=== PATIENT | male | born 1950 | race Caucasian/White ===

== ENCOUNTER 2017-01-02 03:03 | Inpatient (IN) | payer OTHER, MEDICARE ==
[~2017-01-02] VITALS: Ht 185.4 cm; Wt 75.5 kg
[2017-01-02] MEDS ORDERED: OMNIPAQUE 350 MG/ML, 100ML BOTTLE ONE (06:00)
[2017-01-02] MEDS ORDERED: FUROSEMIDE 40 MG/4 ML ONE (06:04)
[2017-01-02] MEDS ORDERED: ASPIRIN 81 MG TABLET CHEW ONE (06:05)
[2017-01-02] MEDS ORDERED: ALBUTEROL/IPRATROPIUM 2.5MG/0.5MG, 3 ML ONE ×2 (07:44→11:28)
[2017-01-02] MEDS ORDERED: HEPARIN 25,000 UNITS/500ML PMX 500 ML ONE (07:49)
[2017-01-02] MEDS ORDERED: HEPARIN 5,000 UNITS/ML, 1ML ONE ×2 (07:50→15:34)
[2017-01-02] MEDS ORDERED: BACITRACIN ZINC OINT 500U/GM, 0.9 GM ONE (08:47)
[2017-01-02 09:40] LABS: ANTI-Xa-UNFRACTIONATED HEP 0.02 IU/mL (0.30-0.70)
[2017-01-02] MEDS: ALBUTEROL/IPRATROPIUM 2.5MG/0.5MG, 3 ML NPPB SCH ×4 (11:30→22:48)
[2017-01-02 11:46] LABS: BLOOD UREA NITROGEN 40 mg/dL (7-18)
[2017-01-02 11:47] LABS: IS PT STATUS REG ER OR PRE ER? YES
[2017-01-02 13:18] LABS: HEMATOCRIT 39.6 % (39.2-51.8); HEMOGLOBIN 13.2 g/dL (13.7-18.0); WHITE BLOOD COUNT 12.2 x10^3/uL (3.4-10)
[2017-01-02 15:49] VITALS: BP 95/68
[2017-01-02 16:49] LABS: IS PT STATUS REG ER OR PRE ER? NO
[2017-01-02] MEDS ORDERED: HEPARIN 25,000 UNITS/500ML PMX 500 ML IV PRN (17:00)
[2017-01-02] MEDS ORDERED: HEPARIN 5,000 UNITS/ML, 1ML IV ONE (17:00)
[2017-01-02] MEDS ORDERED: FUROSEMIDE 40 MG/4 ML IV SCH (17:00)
[2017-01-02] MEDS ORDERED: HEPARIN 5,000 UNITS/ML, 1ML IV PRN (17:00)
[2017-01-02 17:25] VITALS: BP 95/58
[2017-01-02 20:04] VITALS: BP 101/64
[2017-01-02] MEDS: FAMOTIDINE 20 MG/2 ML IVPush SCH (21:02)
[2017-01-02 22:08] LABS: IS PT STATUS REG ER OR PRE ER? NO
[2017-01-03 00:38] VITALS: BP 96/64
[2017-01-03] MEDS: ALBUTEROL/IPRATROPIUM 2.5MG/0.5MG, 3 ML NPPB SCH ×5 (03:30→20:52)
[2017-01-03] MEDS ORDERED: FUROSEMIDE 40 MG/4 ML IV SCH ×2 (05:00→07:30)
[2017-01-03 05:38] LABS: HEMATOCRIT 37.9 % (39.2-51.8); HEMOGLOBIN 12.6 g/dL (13.7-18.0); WHITE BLOOD COUNT 11.7 x10^3/uL (3.4-10)
[2017-01-03 05:39] LABS: BLOOD UREA NITROGEN 38 mg/dL (7-18)
[2017-01-03 05:50] LABS: ASPARTATE AMINO TRANSFERASE 26 U/L (15-37)
[2017-01-03] MEDS: ASPIRIN 81 MG TABLET EC PO SCH (06:37)
[2017-01-03 07:05] VITALS: BP 92/62
[2017-01-03] MEDS: FAMOTIDINE 20 MG/2 ML IVPush SCH (07:40)
[2017-01-03] MEDS ORDERED: FUROSEMIDE 40 MG TABLET PO SCH (09:00)
[2017-01-03] MEDS ORDERED: POTASSIUM CHLORIDE 20 MEQ TAB.ER.PRT PO ONE (12:00)
[2017-01-03] MEDS ORDERED: FUROSEMIDE 40 MG/4 ML IV ONE (12:00)
[2017-01-03 12:02] VITALS: BP 90/65
[2017-01-03] MEDS ORDERED: LIDOCAINE 2%, 20ML ONE (15:42)
[2017-01-03] MEDS ORDERED: FENTANYL PF 100 MCG/2ML ONE (15:42)
[2017-01-03] MEDS ORDERED: MIDAZOLAM 1 MG/ML, 5ML ONE (15:42)
[2017-01-03] MEDS: HEPARIN 25,000 UNITS/500ML PMX 500 ML IV PRN (23:08)
[2017-01-04] MEDS: ALBUTEROL/IPRATROPIUM 2.5MG/0.5MG, 3 ML NPPB SCH ×4 (01:01→20:19)
[2017-01-04] MEDS: ALBUTEROL/IPRATROPIUM 2.5MG/0.5MG, 3 ML NPPB PRN ×2 (01:12→06:44)
[2017-01-04] MEDS: LORazepam 2 MG/ML, 1ML IVPush PRN ×2 (01:28→13:45)
[2017-01-04 04:37] LABS: BLOOD UREA NITROGEN 42 mg/dL (7-18)
[2017-01-04 04:43] LABS: IS PT STATUS REG ER OR PRE ER? NO
[2017-01-04 07:00] VITALS: BP 110/57
[2017-01-04] MEDS: POTASSIUM CHLORIDE 20 MEQ TAB.ER.PRT PO SCH (09:09)
[2017-01-04] MEDS: ASPIRIN 81 MG TABLET EC PO SCH (09:10)
[2017-01-04] MEDS: FUROSEMIDE 40 MG/4 ML IV SCH (09:11)
[2017-01-04] MEDS: HEPARIN 25,000 UNITS/500ML PMX 500 ML IV PRN (13:52)
[2017-01-04] MEDS ORDERED: POTASSIUM CHLORIDE 20 MEQ TAB.ER.PRT PO ONE (15:00)
[2017-01-04] MEDS ORDERED: FUROSEMIDE 40 MG/4 ML IV ONE (15:00)
[2017-01-04] MEDS: HEPARIN 5,000 UNITS/ML, 1ML SQ SCH ×2 (15:55→22:50)
[2017-01-04] MEDS: METOPROLOL TARTRATE 25 MG TABLET PO SCH (18:09)
[2017-01-05] MEDS: LORazepam 1MG TABLET PO PRN (03:13)
[2017-01-05] MEDS: ALBUTEROL/IPRATROPIUM 2.5MG/0.5MG, 3 ML NPPB SCH ×2 (04:54→11:00)
[2017-01-05 04:56] LABS: HEMOGLOBIN 13.1 g/dL (13.7-18.0); WHITE BLOOD COUNT 14.2 x10^3/uL (3.4-10)
[2017-01-05 05:00] VITALS: BP 94/69
[2017-01-05 05:15] LABS: ASPARTATE AMINO TRANSFERASE 65 U/L (15-37); BLOOD UREA NITROGEN 49 mg/dL (7-18)
[2017-01-05] MEDS: LORazepam 2 MG/ML, 1ML IVPush PRN (06:04)
[2017-01-05] MEDS: HEPARIN 5,000 UNITS/ML, 1ML SQ SCH ×3 (06:09→22:03)
[2017-01-05] MEDS: METOPROLOL TARTRATE 25 MG TABLET PO SCH ×2 (06:43→18:00)
[2017-01-05] MEDS: ASPIRIN 81 MG TABLET EC PO SCH (06:44)
[2017-01-05] MEDS: POTASSIUM CHLORIDE 20 MEQ TAB.ER.PRT PO SCH (08:40)
[2017-01-05] MEDS: FUROSEMIDE 40 MG/4 ML IV SCH (08:41)
[2017-01-05] MEDS: NICOTINE 14MG/24 HR PATCH.TD24 TD SCH (09:00)
[2017-01-05] MEDS ORDERED: MORPHINE SULFATE 4 MG/ML, 1ML ONE (09:10)
[2017-01-05] MEDS ORDERED: MIDAZOLAM 1 MG/ML, 5ML ONE (09:10)
[2017-01-05] MEDS ORDERED: MIDAZOLAM 1 MG/ML, 5ML IVPush ONE (09:30)
[2017-01-05] MEDS ORDERED: MORPHINE SULFATE 4 MG/ML, 1ML IVPush ONE (09:30)
[2017-01-05] MEDS ORDERED: PHARMACY MAY ADJ FOR RENAL FX MC SCH (09:30)
[2017-01-05] MEDS ORDERED: LIDOCAINE-MPF 1%, 2ML ENDO PRN (09:30)
[2017-01-05] MEDS ORDERED: VECURONIUM 10 MG ONE (09:43)
[2017-01-05] MEDS ORDERED: MORPHINE SULFATE 4 MG/ML, 1ML IVPush PRN (10:00)
[2017-01-05 10:09] LABS: ABG COLLECTION SITE RIGHT RADIAL; COLLATERAL CIRCULATION TESTING NORMAL
[2017-01-05] MEDS ORDERED: CHLORHEXIDINE MOUTHWASH 15 ML UDC MM PRN (11:00)
[2017-01-05 11:17] LABS: HEMATOCRIT 43.4 % (39.2-51.8); HEMOGLOBIN 14.3 g/dL (13.7-18.0); WHITE BLOOD COUNT 20.5 x10^3/uL (3.4-10)
[2017-01-05] MEDS: PROPOFOL 100 ML IV PRN (11:24)
[2017-01-05 11:29] LABS: ASPARTATE AMINO TRANSFERASE 65 U/L (15-37); BLOOD UREA NITROGEN 56 mg/dL (7-18)
[2017-01-05 11:38] LABS: DIFF TOTAL CELLS COUNTED 100 CELL DIFF
[2017-01-05 11:41] LABS: VERIFY COUNTS? YES
[2017-01-05] MEDS ORDERED: METOPROLOL TARTRATE 25 MG TABLET PO ONE (12:00)
[2017-01-05 12:04] LABS: ABG COLLECTION SITE RIGHT RADIAL; COLLATERAL CIRCULATION TESTING NORMAL
[2017-01-05] MEDS ORDERED: FENTANYL PF 2,500 MCG in SODIUM CHLORIDE 0.9% 200 ML IV PRN (13:30)
[2017-01-05] MEDS ORDERED: MIDAZOLAM HCL 25 MG in SODIUM CHLORIDE 0.9% 245 ML IV PRN (14:00)
[2017-01-05] MEDS: ALBUTEROL/IPRATROPIUM 2.5MG/0.5MG, 3 ML INLINE SCH ×3 (14:24→21:18)
[2017-01-05] MEDS: FAMOTIDINE 20 MG TABLET PO SCH (16:19)
[2017-01-05] MEDS: SODIUM ACETATE 150 MEQ in DEXTROSE 5% 1,000 ML IV SCH ×2 (16:20→21:57)
[2017-01-05] MEDS: NOREPINEPHRINE 4 MG in SODIUM CHLORIDE 0.9% 246 ML IV PRN (17:01)
[2017-01-05] MEDS: SODIUM CHLORIDE FLUSH 10ML SYR IVF SCH (21:57)
[2017-01-05] MEDS: ATORVASTATIN 40 MG TABLET PO SCH (22:20)
[2017-01-06] MEDS: PROPOFOL 100 ML IV PRN ×2 (00:16→03:28)
[2017-01-06] MEDS: NOREPINEPHRINE 4 MG in SODIUM CHLORIDE 0.9% 246 ML IV PRN ×2 (00:17→06:52)
[2017-01-06] MEDS: ALBUTEROL/IPRATROPIUM 2.5MG/0.5MG, 3 ML INLINE SCH ×6 (02:00→22:40)
[2017-01-06 04:30] LABS: ABG COLLECTION SITE RIGHT RADIAL; COLLATERAL CIRCULATION TESTING NORMAL
[2017-01-06 05:10] VITALS: BP 100/70
[2017-01-06 05:41] LABS: HEMATOCRIT 34.7 % (39.2-51.8); HEMOGLOBIN 11.5 g/dL (13.7-18.0); WHITE BLOOD COUNT 14.2 x10^3/uL (3.4-10)
[2017-01-06] MEDS: METOPROLOL TARTRATE 25 MG TABLET PO SCH (05:44)
[2017-01-06 05:51] LABS: BLOOD UREA NITROGEN 55 mg/dL (7-18)
[2017-01-06 05:54] LABS: ASPARTATE AMINO TRANSFERASE 53 U/L (15-37)
[2017-01-06] MEDS ORDERED: ASPIRIN 81 MG TABLET EC PO SCH (06:00)
[2017-01-06] MEDS: INSULIN ASPART 100 UNITS/ML, PEN SQ-INSULIN SCH ×2 (06:07→11:45)
[2017-01-06] MEDS: HEPARIN 5,000 UNITS/ML, 1ML SQ SCH (06:40)
[2017-01-06] MEDS ORDERED: CEFUROXIME 1.5 GM in SODIUM CHLORIDE 0.9% 50 ML IVPB PRN ×2 (07:30→10:30)
[2017-01-06] MEDS ORDERED: DEXMEDETOMIDINE 200 MCG in SODIUM CHLORIDE 0.9% 48 ML IV SCH ×2 (07:30→10:30)
[2017-01-06] MEDS ORDERED: VANCOMYCIN 1,300 MG in SODIUM CHLORIDE 0.9% 250 ML IVPB PRN (07:30)
[2017-01-06] MEDS ORDERED: FUROSEMIDE 40 MG/4 ML IV SCH (09:00)
[2017-01-06] MEDS ORDERED: FENTANYL PF 1000 MCG/20ML ONE (09:03)
[2017-01-06] MEDS ORDERED: MIDAZOLAM 10MG/2 ML ONE (09:03)
[2017-01-06] MEDS: NICOTINE 14MG/24 HR PATCH.TD24 TD SCH (09:20)
[2017-01-06] MEDS: FAMOTIDINE 20 MG TABLET PO SCH (09:27)
[2017-01-06] MEDS: POTASSIUM CHLORIDE 20 MEQ TAB.ER.PRT PO SCH (09:27)
[2017-01-06] MEDS: SODIUM CHLORIDE FLUSH 10ML SYR IVF SCH ×3 (09:28→20:22)
[2017-01-06] MEDS ORDERED: ALBUMIN HUMAN 5% 500 ML IV ONE (10:30)
[2017-01-06] MEDS ORDERED: EPINEPHRINE 2 MG in SODIUM CHLORIDE 0.9% 248 ML IV SCH (10:30)
[2017-01-06] MEDS ORDERED: PHENYLEPHRINE 10 MG in SODIUM CHLORIDE 0.9% 249 ML IV PRN ×2 (10:30→15:34)
[2017-01-06] MEDS ORDERED: VANCOMYCIN 1,300 MG in SODIUM CHLORIDE 0.9% 250 ML IV PRN (10:30)
[2017-01-06] MEDS ORDERED: MANNITOL PMX 20% 500 ML IVPB PRN (10:30)
[2017-01-06] MEDS ORDERED: REGULAR INSULIN 62.5 UNITS in SODIUM CHLORIDE 0.9% 249.375 ML IV PRN ×2 (10:30→15:34)
[2017-01-06] MEDS ORDERED: POTASSIUM CHLORIDE 80 MEQ, SODIUM BICARBONATE 8.4% 10 MEQ, MAGNESIUM SULFATE 0.5 GM, LI... IV PRN (10:30)
[2017-01-06] MEDS ORDERED: ROCURONIUM 10 MG/ML ONE (12:26)
[2017-01-06] MEDS ORDERED: PAPAVERINE 30 MG/ML, 2ML IVPush ONE (13:17)
[2017-01-06] MEDS ORDERED: CALCIUM CHLORIDE 10%, 10ML SYR ONE (14:42)
[2017-01-06] MEDS ORDERED: AMINOCAPROIC ACID 250 MG/ML, 20ML ONE (14:42)
[2017-01-06] MEDS ORDERED: PROTAMINE SULFATE 10 MG/ML, 25ML ONE (14:42)
[2017-01-06] MEDS ORDERED: PAPAVERINE 30 MG/ML, 2ML ONE (14:46)
[2017-01-06] MEDS ORDERED: SODIUM CHLORIDE 0.9% 1,000 ML IV PRN (15:34)
[2017-01-06] MEDS ORDERED: ESMOLOL/NS PMX 250 ML IV PRN (15:34)
[2017-01-06] MEDS ORDERED: NITROGLYCERIN/D5W PMX 250 ML IV PRN (15:34)
[2017-01-06] MEDS ORDERED: DEXMEDETOMIDINE 200 MCG in SODIUM CHLORIDE 0.9% 48 ML IV PRN (15:34)
[2017-01-06] MEDS ORDERED: DOBUTAMINE 250 MG in SODIUM CHLORIDE 0.9% 230 ML IV PRN (15:34)
[2017-01-06] MEDS ORDERED: GLUCAGON 1 MG IM PRN (16:00)
[2017-01-06] MEDS ORDERED: PROCHLORPERAZINE 5 MG/ML, 2ML IVPush PRN (16:00)
[2017-01-06] MEDS ORDERED: BISACODYL 5 MG EC TABLET PO PRN (16:00)
[2017-01-06] MEDS ORDERED: BISACODYL 10 MG SUPP PR PRN (16:00)
[2017-01-06] MEDS ORDERED: LACTATED RINGERS 500 ML IV PRN (16:00)
[2017-01-06] MEDS ORDERED: SODIUM BICARB 8.4%, 50ML SYRINGE IV PRN (16:00)
[2017-01-06] MEDS ORDERED: ONDANSETRON 2MG/ML, 2ML IVPush PRN (16:00)
[2017-01-06] MEDS ORDERED: HYDROcodone/APAP 10/325 MG TABLET PO PRN (16:00)
[2017-01-06] MEDS ORDERED: INSULIN ASPART 100 UNITS/ML, PEN SQ-INSULIN PRN (16:00)
[2017-01-06] MEDS ORDERED: DEXTROSE 50%, 50ML SYRINGE IVPush PRN (16:00)
[2017-01-06] MEDS ORDERED: DEXTROSE 4 GM TAB.CHEW PO PRN (16:00)
[2017-01-06] MEDS ORDERED: MEPERIDINE/PF 25MG/0.5ML IVPush PRN (16:00)
[2017-01-06] MEDS ORDERED: ACETAMINOPHEN 325 MG TABLET PO PRN (16:00)
[2017-01-06] MEDS ORDERED: THROMBIN 5,000 UNIT VIAL TP ONE ×2 (16:55→16:57)
[2017-01-06] MEDS ORDERED: HEPARIN 1,000 UNITS/ML, 30ML ONE ×3 (17:53→17:54)
[2017-01-06 18:11] LABS: ABG COLLECTION SITE ARTERIAL LINE
[2017-01-06 18:15] LABS: HEMATOCRIT 32.7 % (39.2-51.8); HEMOGLOBIN 10.9 g/dL (13.7-18.0)
[2017-01-06] MEDS: MAGNESIUM SULFATE 1 GM in SODIUM CHLORIDE 0.9% 50 ML IVPB SCH (18:24)
[2017-01-06] MEDS: KSCALE TO 4.5 IV SCH ×2 (18:29→22:00)
[2017-01-06] MEDS: morphine SULFATE 10 MG/ML, 1ML IVPush PRN ×2 (19:01→20:28)
[2017-01-06] MEDS: ATORVASTATIN 40 MG TABLET PO SCH (20:21)
[2017-01-06] MEDS: LORazepam 1MG TABLET PO PRN (20:22)
[2017-01-06] MEDS: OXYcodone IR 5MG TABLET PO PRN (20:22)
[2017-01-06] MEDS: MIDAZOLAM 1 MG/ML, 5ML IVPush PRN (20:28)
[2017-01-06] MEDS: DOCUSATE 100 MG CAPSULE PO SCH (21:00)
[2017-01-06 22:28] LABS: HEMOGLOBIN 11.5 g/dL (13.7-18.0)
[2017-01-06] MEDS: EPINEPHRINE 2 MG in SODIUM CHLORIDE 0.9% 248 ML IV PRN (22:48)
[2017-01-06] MEDS: MUPIROCIN OINT 2%, 22GM NAS SCH (22:49)
[2017-01-06] MEDS: CEFUROXIME 1.5 GM in SODIUM CHLORIDE 0.9% 50 ML IVPB SCH (22:49)
[2017-01-07 00:14] LABS: ABG COLLECTION SITE ARTERIAL LINE
[2017-01-07] MEDS: VANCOMYCIN 1,200 MG in SODIUM CHLORIDE 0.9% 250 ML IVPB SCH ×2 (00:14→13:55)
[2017-01-07] MEDS: ALBUTEROL/IPRATROPIUM 2.5MG/0.5MG, 3 ML INLINE SCH ×6 (02:40→21:40)
[2017-01-07] MEDS: MIDAZOLAM 1 MG/ML, 5ML IVPush PRN ×2 (03:05→16:05)
[2017-01-07] MEDS: morphine SULFATE 10 MG/ML, 1ML IVPush PRN (03:06)
[2017-01-07] MEDS: PROPOFOL 100 ML IV PRN ×2 (03:06→17:27)
[2017-01-07] MEDS: KSCALE TO 4.5 IV SCH ×2 (04:00→10:54)
[2017-01-07 04:16] LABS: ABG COLLECTION SITE ARTERIAL LINE
[2017-01-07 04:22] LABS: HEMATOCRIT 35.2 % (39.2-51.8); HEMOGLOBIN 11.6 g/dL (13.7-18.0); WHITE BLOOD COUNT 22.9 x10^3/uL (3.4-10)
[2017-01-07 04:30] LABS: BLOOD UREA NITROGEN 43 mg/dL (7-18)
[2017-01-07 04:58] VITALS: BP 112/64
[2017-01-07] MEDS: EPINEPHRINE 2 MG in SODIUM CHLORIDE 0.9% 248 ML IV PRN ×3 (05:10→18:45)
[2017-01-07] MEDS ORDERED: FUROSEMIDE 20 MG/2 ML IV ONE (07:30)
[2017-01-07] MEDS: MUPIROCIN OINT 2%, 22GM NAS SCH ×2 (09:00→20:27)
[2017-01-07] MEDS: FAMOTIDINE 20 MG TABLET PO SCH ×2 (09:00→20:27)
[2017-01-07] MEDS: DOCUSATE 100 MG CAPSULE PO SCH (09:00)
[2017-01-07] MEDS: METOPROLOL TARTRATE 25 MG TABLET PO/NG SCH ×2 (09:00→20:28)
[2017-01-07] MEDS: SODIUM CHLORIDE FLUSH 10ML SYR IVF SCH ×4 (09:00→20:27)
[2017-01-07] MEDS: ASPIRIN 81 MG TABLET EC PO SCH (09:00)
[2017-01-07] MEDS ORDERED: PANTOPRAZOLE 40 MG IV IVPush SCH (09:00)
[2017-01-07 10:05] LABS: HEMATOCRIT 33.7 % (39.2-51.8); HEMOGLOBIN 11.1 g/dL (13.7-18.0)
[2017-01-07] MEDS: CEFUROXIME 1.5 GM in SODIUM CHLORIDE 0.9% 50 ML IVPB SCH (12:40)
[2017-01-07] MEDS: OXYcodone IR 5MG TABLET PO PRN ×2 (12:40→20:28)
[2017-01-07] MEDS: MAGNESIUM SULFATE 1 GM in SODIUM CHLORIDE 0.9% 50 ML IVPB SCH (16:03)
[2017-01-07] MEDS: CHLORHEXIDINE MOUTHWASH 15 ML UDC MM SCH (16:05)
[2017-01-07] MEDS: CEFTRIAXONE PMX 1GM/50ML 50 ML IV SCH (17:31)
[2017-01-07] MEDS: ATORVASTATIN 40 MG TABLET PO SCH (20:27)
[2017-01-07] MEDS: DOCUSATE 50 MG/5 ML, 10ML UDC PO SCH (21:59)
[2017-01-08] MEDS: PROPOFOL 100 ML IV PRN ×3 (00:09→18:21)
[2017-01-08] MEDS: OXYcodone IR 5MG TABLET PO PRN ×2 (00:17→11:02)
[2017-01-08] MEDS: ALBUTEROL/IPRATROPIUM 2.5MG/0.5MG, 3 ML INLINE SCH ×6 (02:10→23:00)
[2017-01-08 03:57] LABS: ABG COLLECTION SITE LEFT RADIAL
[2017-01-08 03:58] LABS: COLLATERAL CIRCULATION TESTING NOT DOCUMENTED
[2017-01-08 04:09] LABS: BLOOD UREA NITROGEN 33 mg/dL (7-18)
[2017-01-08 04:11] LABS: HEMATOCRIT 32.2 % (39.2-51.8); HEMOGLOBIN 10.4 g/dL (13.7-18.0); WHITE BLOOD COUNT 15.1 x10^3/uL (3.4-10)
[2017-01-08] MEDS: CHLORHEXIDINE MOUTHWASH 15 ML UDC MM SCH ×2 (04:46→15:41)
[2017-01-08] MEDS: EPINEPHRINE 2 MG in SODIUM CHLORIDE 0.9% 248 ML IV PRN (04:50)
[2017-01-08 05:00] VITALS: BP 98/48
[2017-01-08] MEDS: ENOXAPARIN 40 MG/0.4 ML SQ SCH (09:00)
[2017-01-08] MEDS ORDERED: OXYcodone 5 MG/5 ML ORAL.SOL UDC ONE (10:48)
[2017-01-08] MEDS: INSULIN DETEMIR 100 UNITS/ML, PEN SQ-INSULIN SCH ×2 (10:58→21:46)
[2017-01-08] MEDS: METOPROLOL TARTRATE 25 MG TABLET PO/NG SCH ×2 (10:59→21:45)
[2017-01-08] MEDS: ASPIRIN 81 MG TABLET EC PO SCH (10:59)
[2017-01-08] MEDS: INSULIN ASPART 100 UNITS/ML, PEN SQ-INSULIN SCH ×3 (10:59→23:00)
[2017-01-08] MEDS: DOCUSATE 50 MG/5 ML, 10ML UDC PO SCH ×2 (10:59→21:45)
[2017-01-08] MEDS: SODIUM CHLORIDE FLUSH 10ML SYR IVF SCH ×4 (11:00→21:44)
[2017-01-08] MEDS: MUPIROCIN OINT 2%, 22GM NAS SCH ×2 (11:00→21:45)
[2017-01-08] MEDS: FAMOTIDINE 20 MG TABLET PO SCH ×2 (15:39→21:48)
[2017-01-08] MEDS: CEFTRIAXONE PMX 1GM/50ML 50 ML IV SCH (15:40)
[2017-01-08] MEDS: ASPIRIN 81 MG TABLET CHEW PO SCH (15:40)
[2017-01-08] MEDS: MAGNESIUM SULFATE 1 GM in SODIUM CHLORIDE 0.9% 50 ML IVPB SCH (16:17)
[2017-01-08] MEDS: ATORVASTATIN 40 MG TABLET PO SCH (21:45)
[2017-01-08] MEDS: OXYcodone 5 MG/5 ML ORAL.SOL UDC PO PRN (23:51)
[2017-01-09] MEDS: PROPOFOL 100 ML IV PRN ×4 (01:26→19:25)
[2017-01-09] MEDS: ALBUTEROL/IPRATROPIUM 2.5MG/0.5MG, 3 ML INLINE SCH ×6 (03:00→23:00)
[2017-01-09] MEDS: CHLORHEXIDINE MOUTHWASH 15 ML UDC MM SCH (04:00)
[2017-01-09 04:32] LABS: HEMOGLOBIN 10.1 g/dL (13.7-18.0); WHITE BLOOD COUNT 12.6 x10^3/uL (3.4-10)
[2017-01-09 04:39] LABS: ABG COLLECTION SITE RIGHT RADIAL; COLLATERAL CIRCULATION TESTING NORMAL
[2017-01-09 04:48] LABS: BLOOD UREA NITROGEN 26 mg/dL (7-18)
[2017-01-09] MEDS: INSULIN ASPART 100 UNITS/ML, PEN SQ-INSULIN SCH ×4 (05:00→22:58)
[2017-01-09 05:51] VITALS: BP 99/62
[2017-01-09] MEDS: OXYcodone 5 MG/5 ML ORAL.SOL UDC PO PRN ×3 (06:17→20:39)
[2017-01-09] MEDS: POTASSIUM CHLORIDE 10 MEQ TABLET.ER PO SCH ×2 (08:36→16:48)
[2017-01-09] MEDS: ASPIRIN 81 MG TABLET CHEW PO SCH (08:36)
[2017-01-09] MEDS: FAMOTIDINE 20 MG TABLET PO SCH ×2 (08:37→20:39)
[2017-01-09] MEDS: MUPIROCIN OINT 2%, 22GM NAS SCH ×2 (08:37→20:39)
[2017-01-09] MEDS: SODIUM CHLORIDE FLUSH 10ML SYR IVF SCH ×3 (08:37→20:38)
[2017-01-09] MEDS: FUROSEMIDE 20 MG/2 ML IV SCH ×2 (08:37→16:48)
[2017-01-09] MEDS: DOCUSATE 50 MG/5 ML, 10ML UDC PO SCH ×2 (08:37→20:39)
[2017-01-09] MEDS: METOPROLOL TARTRATE 25 MG TABLET PO/NG SCH ×2 (08:38→20:39)
[2017-01-09] MEDS: ENOXAPARIN 40 MG/0.4 ML SQ SCH (08:38)
[2017-01-09] MEDS ORDERED: CLOPIDOGREL 75 MG TABLET PO SCH (09:00)
[2017-01-09] MEDS: INSULIN DETEMIR 100 UNITS/ML, PEN SQ-INSULIN SCH ×2 (11:31→22:58)
[2017-01-09] MEDS: CEFTRIAXONE PMX 1GM/50ML 50 ML IV SCH (16:48)
[2017-01-09] MEDS ORDERED: WARFARIN 5 MG TABLET PO-COUM ONE (18:33)
[2017-01-09] MEDS: ATORVASTATIN 40 MG TABLET PO SCH (20:39)
[2017-01-10] MEDS: OXYcodone 5 MG/5 ML ORAL.SOL UDC PO PRN ×4 (01:25→20:28)
[2017-01-10] MEDS: PROPOFOL 100 ML IV PRN ×4 (01:25→21:22)
[2017-01-10] MEDS: ALBUTEROL/IPRATROPIUM 2.5MG/0.5MG, 3 ML INLINE SCH ×6 (03:00→23:00)
[2017-01-10 04:22] VITALS: BP 100/56
[2017-01-10 04:24] LABS: ABG COLLECTION SITE RIGHT RADIAL; COLLATERAL CIRCULATION TESTING NORMAL
[2017-01-10] MEDS: INSULIN ASPART 100 UNITS/ML, PEN SQ-INSULIN SCH ×4 (05:00→23:50)
[2017-01-10 05:24] LABS: HEMATOCRIT 31.8 % (39.2-51.8); HEMOGLOBIN 10.6 g/dL (13.7-18.0); WHITE BLOOD COUNT 13.9 x10^3/uL (3.4-10)
[2017-01-10 05:36] LABS: BLOOD UREA NITROGEN 27 mg/dL (7-18)
[2017-01-10] MEDS ORDERED: DEXMEDETOMIDINE 200 MCG in SODIUM CHLORIDE 0.9% 48 ML IV PRN (08:30)
[2017-01-10] MEDS ORDERED: LABETALOL 5MG/ML, 20ML IVPush PRN (08:30)
[2017-01-10] MEDS: MUPIROCIN OINT 2%, 22GM NAS SCH ×2 (08:58→20:28)
[2017-01-10] MEDS: LISINOPRIL 5 MG TABLET PO SCH ×2 (08:58→20:28)
[2017-01-10] MEDS: ENOXAPARIN 40 MG/0.4 ML SQ SCH (08:58)
[2017-01-10] MEDS: DOCUSATE 50 MG/5 ML, 10ML UDC PO SCH ×2 (08:59→20:29)
[2017-01-10] MEDS: FUROSEMIDE 40 MG/4 ML IV SCH ×2 (10:13→17:17)
[2017-01-10] MEDS: FAMOTIDINE 20 MG TABLET PO SCH ×2 (10:13→20:28)
[2017-01-10] MEDS: SODIUM CHLORIDE FLUSH 10ML SYR IVF SCH ×2 (10:13→14:34)
[2017-01-10] MEDS: ASPIRIN 81 MG TABLET CHEW PO SCH (10:13)
[2017-01-10] MEDS: METOPROLOL TARTRATE 25 MG TABLET PO/NG SCH ×2 (10:14→20:28)
[2017-01-10] MEDS: INSULIN DETEMIR 100 UNITS/ML, PEN SQ-INSULIN SCH ×2 (11:48→23:50)
[2017-01-10] MEDS: ACETAMINOPHEN 650 MG SUPP PR PRN ×2 (14:42→23:53)
[2017-01-10] MEDS: CEFTRIAXONE PMX 1GM/50ML 50 ML IV SCH (16:30)
[2017-01-10] MEDS ORDERED: FUROSEMIDE 40 MG/4 ML IV SCH (17:00)
[2017-01-10] MEDS ORDERED: POTASSIUM CHLORIDE 20 MEQ PACKET PO SCH (17:00)
[2017-01-10] MEDS ORDERED: WARFARIN 5 MG TABLET PO-COUM SCH (18:00)
[2017-01-10] MEDS: ATORVASTATIN 40 MG TABLET PO SCH (20:28)
[2017-01-11] MEDS: ALBUTEROL/IPRATROPIUM 2.5MG/0.5MG, 3 ML INLINE SCH ×6 (02:24→22:18)
[2017-01-11] MEDS: OXYcodone 5 MG/5 ML ORAL.SOL UDC PO PRN ×3 (04:13→18:47)
[2017-01-11] MEDS: PROPOFOL 100 ML IV PRN ×3 (04:25→20:04)
[2017-01-11 04:37] LABS: HEMATOCRIT 35.6 % (39.2-51.8); HEMOGLOBIN 11.8 g/dL (13.7-18.0); WHITE BLOOD COUNT 12.9 x10^3/uL (3.4-10)
[2017-01-11 04:47] LABS: BLOOD UREA NITROGEN 32 mg/dL (7-18)
[2017-01-11 04:55] LABS: ABG COLLECTION SITE RIGHT RADIAL; COLLATERAL CIRCULATION TESTING NORMAL
[2017-01-11 05:31] VITALS: BP 103/54
[2017-01-11] MEDS: INSULIN ASPART 100 UNITS/ML, PEN SQ-INSULIN SCH ×4 (06:31→22:37)
[2017-01-11] MEDS ORDERED: PHARMACOKINETIC MONITORING MC PRN (09:00)
[2017-01-11] MEDS: METOPROLOL TARTRATE 25 MG TABLET PO/NG SCH ×2 (09:00→21:00)
[2017-01-11] MEDS ORDERED: VANCOMYCIN PER PHARMACY MC PRN (09:00)
[2017-01-11] MEDS ORDERED: PHARMACOKINETIC CONSULTATION MC ONE (09:00)
[2017-01-11] MEDS: ENOXAPARIN 40 MG/0.4 ML SQ SCH (09:23)
[2017-01-11] MEDS: FAMOTIDINE 20 MG TABLET PO SCH ×2 (09:23→20:59)
[2017-01-11] MEDS: ASPIRIN 81 MG TABLET CHEW PO SCH (09:23)
[2017-01-11] MEDS: FUROSEMIDE 40 MG/4 ML IV SCH ×2 (09:23→14:41)
[2017-01-11] MEDS: MUPIROCIN OINT 2%, 22GM NAS SCH (09:24)
[2017-01-11] MEDS: DOCUSATE 50 MG/5 ML, 10ML UDC PO SCH ×2 (09:24→20:59)
[2017-01-11] MEDS: SODIUM CHLORIDE FLUSH 10ML SYR IVF SCH ×2 (09:24→21:00)
[2017-01-11] MEDS: INSULIN DETEMIR 100 UNITS/ML, PEN SQ-INSULIN SCH ×2 (11:50→22:37)
[2017-01-11] MEDS: PIPERACILLIN/TAZO/PMX 3.375GM 50 ML IV SCH ×3 (11:51→23:58)
[2017-01-11] MEDS: VANCOMYCIN 1,600 MG in SODIUM CHLORIDE 0.9% 250 ML IV SCH (12:21)
[2017-01-11] MEDS ORDERED: SODIUM CHLORIDE 0.9%, 500ML IVBOLUS ONE ×2 (14:30→15:30)
[2017-01-11] MEDS ORDERED: WARFARIN 5 MG TABLET PO-COUM SCH (18:00)
[2017-01-11] MEDS: POTASSIUM CHLORIDE 20 MEQ PACKET PO SCH (18:42)
[2017-01-11] MEDS: ATORVASTATIN 40 MG TABLET PO SCH (20:59)
[2017-01-12] MEDS: ACETAMINOPHEN 650 MG/20.3 ML UDC NG PRN ×3 (01:29→23:15)
[2017-01-12] MEDS: PROPOFOL 100 ML IV PRN (02:00)
[2017-01-12] MEDS: ALBUTEROL/IPRATROPIUM 2.5MG/0.5MG, 3 ML INLINE SCH ×6 (02:18→22:10)
[2017-01-12 04:17] LABS: ABG COLLECTION SITE RIGHT RADIAL; COLLATERAL CIRCULATION TESTING NORMAL
[2017-01-12 04:47] LABS: HEMATOCRIT 31.4 % (39.2-51.8); HEMOGLOBIN 10.4 g/dL (13.7-18.0); WHITE BLOOD COUNT 12.1 x10^3/uL (3.4-10)
[2017-01-12 04:57] LABS: BLOOD UREA NITROGEN 32 mg/dL (7-18)
[2017-01-12 05:00] VITALS: BP 112/67
[2017-01-12] MEDS: INSULIN ASPART 100 UNITS/ML, PEN SQ-INSULIN SCH ×4 (05:01→23:05)
[2017-01-12] MEDS: PIPERACILLIN/TAZO/PMX 3.375GM 50 ML IV SCH ×2 (05:50→13:52)
[2017-01-12] MEDS: VANCOMYCIN 1,600 MG in SODIUM CHLORIDE 0.9% 250 ML IV SCH (06:15)
[2017-01-12] MEDS: ENOXAPARIN 40 MG/0.4 ML SQ SCH (08:47)
[2017-01-12] MEDS: METOPROLOL TARTRATE 25 MG TABLET PO/NG SCH ×2 (08:47→21:40)
[2017-01-12] MEDS: ASPIRIN 81 MG TABLET CHEW PO SCH (08:47)
[2017-01-12] MEDS: POTASSIUM CHLORIDE 20 MEQ PACKET PO SCH ×2 (08:47→17:30)
[2017-01-12] MEDS: FAMOTIDINE 20 MG TABLET PO SCH ×2 (08:47→21:39)
[2017-01-12] MEDS: DOCUSATE 50 MG/5 ML, 10ML UDC PO SCH ×2 (08:48→21:00)
[2017-01-12] MEDS: SODIUM CHLORIDE FLUSH 10ML SYR IVF SCH ×2 (08:53→21:39)
[2017-01-12] MEDS: morphine SULFATE 10 MG/ML, 1ML IVPush PRN (09:16)
[2017-01-12] MEDS: OXYcodone 5 MG/5 ML ORAL.SOL UDC PO PRN ×2 (11:06→15:30)
[2017-01-12] MEDS: INSULIN DETEMIR 100 UNITS/ML, PEN SQ-INSULIN SCH ×2 (11:12→23:05)
[2017-01-12] MEDS: MEROPENEM 1 GM in SODIUM CHLORIDE 0.9% 100 ML IV SCH (17:30)
[2017-01-12] MEDS ORDERED: WARFARIN 10 MG TABLET PO-COUM ONE (18:00)
[2017-01-12] MEDS: MIDAZOLAM 1 MG/ML, 5ML IVPush PRN (20:21)
[2017-01-12] MEDS: ATORVASTATIN 40 MG TABLET PO SCH (21:39)
[2017-01-13] MEDS: VANCOMYCIN 1,600 MG in SODIUM CHLORIDE 0.9% 250 ML IV SCH (00:10)
[2017-01-13] MEDS: MEROPENEM 1 GM in SODIUM CHLORIDE 0.9% 100 ML IV SCH ×2 (01:22→09:13)
[2017-01-13] MEDS: ALBUTEROL/IPRATROPIUM 2.5MG/0.5MG, 3 ML INLINE SCH ×3 (02:16→10:40)
[2017-01-13 04:22] LABS: ABG COLLECTION SITE LEFT RADIAL; COLLATERAL CIRCULATION TESTING NORMAL
[2017-01-13 05:00] VITALS: BP 126/68
[2017-01-13] MEDS: INSULIN ASPART 100 UNITS/ML, PEN SQ-INSULIN SCH ×4 (05:10→22:34)
[2017-01-13 05:25] LABS: HEMATOCRIT 31.1 % (39.2-51.8); HEMOGLOBIN 10.4 g/dL (13.7-18.0); WHITE BLOOD COUNT 12.1 x10^3/uL (3.4-10)
[2017-01-13 05:43] LABS: BLOOD UREA NITROGEN 32 mg/dL (7-18)
[2017-01-13] MEDS: METOPROLOL TARTRATE 25 MG TABLET PO/NG SCH ×2 (08:36→21:13)
[2017-01-13] MEDS: ASPIRIN 81 MG TABLET CHEW PO SCH (08:36)
[2017-01-13] MEDS: FAMOTIDINE 20 MG TABLET PO SCH ×2 (08:36→21:13)
[2017-01-13] MEDS: ENOXAPARIN 40 MG/0.4 ML SQ SCH (08:36)
[2017-01-13] MEDS: POTASSIUM CHLORIDE 20 MEQ PACKET PO SCH ×2 (08:36→17:33)
[2017-01-13] MEDS: DOCUSATE 50 MG/5 ML, 10ML UDC PO SCH ×2 (09:00→21:12)
[2017-01-13] MEDS: SODIUM CHLORIDE FLUSH 10ML SYR IVF SCH ×2 (09:12→21:14)
[2017-01-13] MEDS: INSULIN DETEMIR 100 UNITS/ML, PEN SQ-INSULIN SCH ×2 (11:30→22:34)
[2017-01-13] MEDS: ALBUTEROL/IPRATROPIUM 2.5MG/0.5MG, 3 ML NPPB SCH ×3 (14:30→22:02)
[2017-01-13] MEDS: PIPERACILLIN/TAZO/PMX 3.375GM 50 ML IV SCH ×2 (16:33→22:29)
[2017-01-13] MEDS: LORazepam 2 MG/ML, 1ML IVPush PRN (16:33)
[2017-01-13] MEDS ORDERED: WARFARIN 7.5 MG TABLET PO-COUM ONE (18:00)
[2017-01-13] MEDS: ATORVASTATIN 40 MG TABLET PO SCH (21:13)
[2017-01-14] MEDS: ALBUTEROL/IPRATROPIUM 2.5MG/0.5MG, 3 ML NPPB SCH ×6 (02:54→22:55)
[2017-01-14] MEDS: PIPERACILLIN/TAZO/PMX 3.375GM 50 ML IV SCH ×4 (04:10→21:04)
[2017-01-14] MEDS: LORazepam 2 MG/ML, 1ML IVPush PRN ×4 (04:11→21:58)
[2017-01-14 04:28] VITALS: BP 120/65
[2017-01-14 04:29] LABS: ABG COLLECTION SITE RIGHT RADIAL; COLLATERAL CIRCULATION TESTING NORMAL
[2017-01-14 06:31] LABS: HEMATOCRIT 32.7 % (39.2-51.8); HEMOGLOBIN 10.9 g/dL (13.7-18.0); WHITE BLOOD COUNT 13.9 x10^3/uL (3.4-10)
[2017-01-14 06:43] LABS: BLOOD UREA NITROGEN 28 mg/dL (7-18)
[2017-01-14] MEDS: INSULIN ASPART 100 UNITS/ML, PEN SQ-INSULIN SCH ×4 (07:11→21:31)
[2017-01-14] MEDS ORDERED: MAGNESIUM HYDROXIDE 8%, 30ML UDC PO PRN (08:00)
[2017-01-14] MEDS ORDERED: LACTATED RINGERS 500 ML IVBOLUS ONE (10:30)
[2017-01-14] MEDS: INSULIN DETEMIR 100 UNITS/ML, PEN SQ-INSULIN SCH ×2 (11:00→21:30)
[2017-01-14] MEDS ORDERED: FILTER 0.22 MICRON FOR AMIODARONE IV PRN (11:30)
[2017-01-14] MEDS ORDERED: AMIODARONE 150 MG in DEXTROSE 5% 100 ML IV ONE (11:30)
[2017-01-14] MEDS ORDERED: AMIODARONE 900 MG in DEXTROSE 5% 482 ML IV PRN (11:30)
[2017-01-14] MEDS: ASPIRIN 81 MG TABLET CHEW PO SCH (11:33)
[2017-01-14] MEDS: FAMOTIDINE 20 MG TABLET PO SCH ×2 (11:34→21:02)
[2017-01-14] MEDS: POTASSIUM CHLORIDE 20 MEQ PACKET PO SCH ×2 (11:35→16:57)
[2017-01-14] MEDS: ENOXAPARIN 40 MG/0.4 ML SQ SCH (11:36)
[2017-01-14] MEDS: SODIUM CHLORIDE FLUSH 10ML SYR IVF SCH ×3 (11:37→21:03)
[2017-01-14] MEDS: DOCUSATE 50 MG/5 ML, 10ML UDC PO SCH ×2 (11:37→21:00)
[2017-01-14] MEDS: METOPROLOL TARTRATE 25 MG TABLET PO/NG SCH ×2 (11:38→21:03)
[2017-01-14] MEDS ORDERED: WARFARIN 7.5 MG TABLET PO-COUM ONE (18:00)
[2017-01-14 20:00] VITALS: BP 101/64
[2017-01-14] MEDS: ATORVASTATIN 40 MG TABLET PO SCH (21:02)
[2017-01-15 02:00] VITALS: BP 110/65
[2017-01-15] MEDS: ALBUTEROL/IPRATROPIUM 2.5MG/0.5MG, 3 ML NPPB SCH ×5 (03:00→18:46)
[2017-01-15] MEDS: PIPERACILLIN/TAZO/PMX 3.375GM 50 ML IV SCH ×4 (04:15→21:47)
[2017-01-15] MEDS: INSULIN ASPART 100 UNITS/ML, PEN SQ-INSULIN SCH ×4 (04:25→22:28)
[2017-01-15 04:35] LABS: ABG COLLECTION SITE RIGHT RADIAL; COLLATERAL CIRCULATION TESTING NORMAL
[2017-01-15 04:44] LABS: BLOOD UREA NITROGEN 28 mg/dL (7-18)
[2017-01-15 04:58] LABS: HEMATOCRIT 33.5 % (39.2-51.8); HEMOGLOBIN 11.1 g/dL (13.7-18.0); WHITE BLOOD COUNT 15.2 x10^3/uL (3.4-10)
[2017-01-15] MEDS: LORazepam 2 MG/ML, 1ML IVPush PRN (04:58)
[2017-01-15 07:57] VITALS: BP 111/59
[2017-01-15] MEDS: FAMOTIDINE 20 MG TABLET PO SCH ×2 (08:09→20:49)
[2017-01-15] MEDS: ASPIRIN 81 MG TABLET CHEW PO SCH (08:09)
[2017-01-15] MEDS: POTASSIUM CHLORIDE 20 MEQ PACKET PO SCH ×2 (08:09→16:20)
[2017-01-15] MEDS: METOPROLOL TARTRATE 25 MG TABLET PO/NG SCH ×2 (08:10→20:49)
[2017-01-15] MEDS: ENOXAPARIN 40 MG/0.4 ML SQ SCH (08:10)
[2017-01-15] MEDS: DOCUSATE 50 MG/5 ML, 10ML UDC PO SCH ×2 (08:10→20:57)
[2017-01-15] MEDS ORDERED: AMIODARONE 150 MG in DEXTROSE 5% 100 ML IV ONE (09:30)
[2017-01-15] MEDS ORDERED: FILTER 0.22 MICRON FOR AMIODARONE IV PRN (09:30)
[2017-01-15] MEDS ORDERED: AMIODARONE 900 MG in DEXTROSE 5% 482 ML IV PRN (09:30)
[2017-01-15] MEDS: SODIUM CHLORIDE FLUSH 10ML SYR IVF SCH ×2 (09:59→20:53)
[2017-01-15] MEDS: INSULIN DETEMIR 100 UNITS/ML, PEN SQ-INSULIN SCH ×2 (11:19→22:29)
[2017-01-15 15:24] VITALS: BP 98/63
[2017-01-15] MEDS ORDERED: WARFARIN 2.5 MG TABLET PO-COUM ONE (18:00)
[2017-01-15 19:22] VITALS: BP 121/68
[2017-01-15] MEDS: ATORVASTATIN 40 MG TABLET PO SCH (20:48)
[2017-01-15] MEDS: QUETIAPINE 25MG TABLET PO SCH (20:49)
[2017-01-15] MEDS: OXYcodone 5 MG/5 ML ORAL.SOL UDC PO PRN (20:52)
[2017-01-15] MEDS ORDERED: QUETIAPINE 25MG TABLET PO SCH (21:00)
[2017-01-16 02:00] VITALS: BP 120/58
[2017-01-16] MEDS: PIPERACILLIN/TAZO/PMX 3.375GM 50 ML IV SCH ×4 (03:39→22:19)
[2017-01-16 04:58] LABS: HEMATOCRIT 32.3 % (39.2-51.8); HEMOGLOBIN 10.6 g/dL (13.7-18.0); WHITE BLOOD COUNT 15.5 x10^3/uL (3.4-10)
[2017-01-16 05:00] LABS: ABG COLLECTION SITE RIGHT RADIAL; COLLATERAL CIRCULATION TESTING NORMAL
[2017-01-16] MEDS: INSULIN ASPART 100 UNITS/ML, PEN SQ-INSULIN SCH ×4 (05:00→22:17)
[2017-01-16 05:06] LABS: BLOOD UREA NITROGEN 27 mg/dL (7-18)
[2017-01-16] MEDS: DOCUSATE 50 MG/5 ML, 10ML UDC PO SCH ×2 (09:00→20:29)
[2017-01-16] MEDS: AMIODARONE 200 MG TABLET PO SCH (10:22)
[2017-01-16] MEDS: QUETIAPINE 25MG TABLET PO SCH ×2 (10:22→20:31)
[2017-01-16] MEDS: METOPROLOL TARTRATE 25 MG TABLET PO/NG SCH ×2 (10:22→20:32)
[2017-01-16] MEDS: FAMOTIDINE 20 MG TABLET PO SCH ×2 (10:23→20:33)
[2017-01-16] MEDS: POTASSIUM CHLORIDE 20 MEQ PACKET PO SCH ×2 (10:23→20:30)
[2017-01-16] MEDS: ASPIRIN 81 MG TABLET CHEW PO SCH (10:23)
[2017-01-16] MEDS: SODIUM CHLORIDE FLUSH 10ML SYR IVF SCH ×2 (10:24→20:29)
[2017-01-16] MEDS: ALBUTEROL/IPRATROPIUM 2.5MG/0.5MG, 3 ML NPPB SCH ×3 (11:40→19:19)
[2017-01-16] MEDS: INSULIN DETEMIR 100 UNITS/ML, PEN SQ-INSULIN SCH ×2 (12:53→22:19)
[2017-01-16] MEDS ORDERED: WARFARIN 5 MG TABLET PO-COUM ONE (18:00)
[2017-01-16] MEDS ORDERED: POTASSIUM CHLORIDE 20 MEQ TAB.ER.PRT ONE (19:28)
[2017-01-16 20:00] VITALS: BP 103/71
[2017-01-16] MEDS: ATORVASTATIN 40 MG TABLET PO SCH (20:33)
[2017-01-17 00:17] VITALS: BP 122/78
[2017-01-17] MEDS: INSULIN ASPART 100 UNITS/ML, PEN SQ-INSULIN SCH ×4 (04:43→23:20)
[2017-01-17 04:51] LABS: ABG COLLECTION SITE RIGHT BRACHIAL
[2017-01-17 04:58] LABS: HEMATOCRIT 32.2 % (39.2-51.8); HEMOGLOBIN 10.6 g/dL (13.7-18.0); WHITE BLOOD COUNT 15.1 x10^3/uL (3.4-10)
[2017-01-17 05:05] LABS: BLOOD UREA NITROGEN 16 mg/dL (7-18)
[2017-01-17] MEDS: PIPERACILLIN/TAZO/PMX 3.375GM 50 ML IV SCH ×4 (05:06→23:18)
[2017-01-17] MEDS: ALBUTEROL/IPRATROPIUM 2.5MG/0.5MG, 3 ML NPPB SCH ×4 (07:00→19:31)
[2017-01-17 08:45] VITALS: BP 107/72
[2017-01-17] MEDS: DOCUSATE 50 MG/5 ML, 10ML UDC PO SCH ×3 (09:00→20:46)
[2017-01-17] MEDS: QUETIAPINE 25MG TABLET PO SCH ×2 (09:25→20:45)
[2017-01-17] MEDS: AMIODARONE 200 MG TABLET PO SCH (09:26)
[2017-01-17] MEDS: FAMOTIDINE 20 MG TABLET PO SCH ×2 (09:26→20:45)
[2017-01-17] MEDS: METOPROLOL TARTRATE 25 MG TABLET PO/NG SCH ×2 (09:26→20:46)
[2017-01-17] MEDS: POTASSIUM CHLORIDE 20 MEQ PACKET PO SCH ×2 (09:27→16:47)
[2017-01-17] MEDS: ASPIRIN 81 MG TABLET CHEW PO SCH (09:28)
[2017-01-17] MEDS: SODIUM CHLORIDE FLUSH 10ML SYR IVF SCH ×2 (09:30→20:46)
[2017-01-17] MEDS: INSULIN DETEMIR 100 UNITS/ML, PEN SQ-INSULIN SCH ×2 (11:00→23:20)
[2017-01-17 14:20] VITALS: BP 92/57
[2017-01-17] MEDS ORDERED: WARFARIN 7.5 MG TABLET PO-COUM ONE (18:00)
[2017-01-17 19:13] VITALS: BP 100/66
[2017-01-17] MEDS: ATORVASTATIN 40 MG TABLET PO SCH (20:45)
[2017-01-18 01:44] VITALS: BP 97/63
[2017-01-18 05:03] LABS: HEMATOCRIT 32.2 % (39.2-51.8); HEMOGLOBIN 10.8 g/dL (13.7-18.0)
[2017-01-18 05:16] LABS: BLOOD UREA NITROGEN 14 mg/dL (7-18)
[2017-01-18] MEDS: INSULIN ASPART 100 UNITS/ML, PEN SQ-INSULIN SCH ×4 (05:20→20:32)
[2017-01-18] MEDS: PIPERACILLIN/TAZO/PMX 3.375GM 50 ML IV SCH ×4 (05:24→23:14)
[2017-01-18] MEDS: ALBUTEROL/IPRATROPIUM 2.5MG/0.5MG, 3 ML NPPB SCH ×4 (06:51→19:46)
[2017-01-18 08:58] VITALS: BP 116/73
[2017-01-18] MEDS: FAMOTIDINE 20 MG TABLET PO SCH ×2 (09:20→20:05)
[2017-01-18] MEDS: ASPIRIN 81 MG TABLET CHEW PO SCH (09:20)
[2017-01-18] MEDS: QUETIAPINE 25MG TABLET PO SCH ×2 (09:20→20:05)
[2017-01-18] MEDS: AMIODARONE 200 MG TABLET PO SCH (09:20)
[2017-01-18] MEDS: SODIUM CHLORIDE FLUSH 10ML SYR IVF SCH ×2 (09:21→20:04)
[2017-01-18] MEDS: POTASSIUM CHLORIDE 20 MEQ PACKET PO SCH ×2 (09:21→18:42)
[2017-01-18] MEDS: DOCUSATE 50 MG/5 ML, 10ML UDC PO SCH ×2 (09:22→20:04)
[2017-01-18] MEDS: LISINOPRIL 5 MG TABLET PO SCH (12:19)
[2017-01-18] MEDS: INSULIN DETEMIR 100 UNITS/ML, PEN SQ-INSULIN SCH ×2 (12:21→20:31)
[2017-01-18 14:01] VITALS: BP 101/66
[2017-01-18] MEDS ORDERED: WARFARIN 5 MG TABLET PO-COUM ONE (18:00)
[2017-01-18] MEDS: CARVEDILOL 6.25 MG TABLET PO SCH (18:42)
[2017-01-18 19:02] VITALS: BP 95/62
[2017-01-18] MEDS: ATORVASTATIN 40 MG TABLET PO SCH (20:05)
[2017-01-19 00:53] VITALS: BP 91/59
[2017-01-19] MEDS: INSULIN ASPART 100 UNITS/ML, PEN SQ-INSULIN SCH ×4 (05:00→22:27)
[2017-01-19 05:14] LABS: HEMATOCRIT 31.5 % (39.2-51.8); HEMOGLOBIN 10.5 g/dL (13.7-18.0); WHITE BLOOD COUNT 12.3 x10^3/uL (3.4-10)
[2017-01-19 05:22] LABS: BLOOD UREA NITROGEN 15 mg/dL (7-18)
[2017-01-19] MEDS: PIPERACILLIN/TAZO/PMX 3.375GM 50 ML IV SCH ×4 (05:49→22:34)
[2017-01-19 05:54] VITALS: BP 102/66
[2017-01-19] MEDS: CARVEDILOL 6.25 MG TABLET PO SCH ×2 (05:59→18:43)
[2017-01-19 07:29] VITALS: BP 100/66
[2017-01-19] MEDS: ALBUTEROL/IPRATROPIUM 2.5MG/0.5MG, 3 ML NPPB SCH ×4 (07:49→19:58)
[2017-01-19] MEDS ORDERED: ATOR40TA78 PO (08:30)
[2017-01-19] MEDS ORDERED: QUET25TA PO (08:30)
[2017-01-19] MEDS ORDERED: CARV6.2512 PO (08:30)
[2017-01-19] MEDS ORDERED: FAMO20TA7 PO (08:30)
[2017-01-19] MEDS ORDERED: AMIO200T42 PO (08:30)
[2017-01-19] MEDS ORDERED: INSU100I18 SQ-INSULIN (08:30)
[2017-01-19] MEDS ORDERED: LISI5TAB7 PO (08:30)
[2017-01-19] MEDS ORDERED: IPRA3AMP NPPB ×2 (08:30)
[2017-01-19] MEDS ORDERED: INSU100I28 SQ-INSULIN (08:30)
[2017-01-19] MEDS ORDERED: DOCU50LI12 PO (08:30)
[2017-01-19] MEDS ORDERED: POTA20PA25 PO (08:30)
[2017-01-19] MEDS ORDERED: ASPI-515 PO (08:30)
[2017-01-19] MEDS ORDERED: WARF5TAB PO (08:31)
[2017-01-19] MEDS: ASPIRIN 81 MG TABLET CHEW PO SCH (09:06)
[2017-01-19] MEDS: LISINOPRIL 5 MG TABLET PO SCH (09:06)
[2017-01-19] MEDS: FAMOTIDINE 20 MG TABLET PO SCH ×2 (09:06→22:17)
[2017-01-19] MEDS: AMIODARONE 200 MG TABLET PO SCH (09:06)
[2017-01-19] MEDS: POTASSIUM CHLORIDE 20 MEQ PACKET PO SCH ×2 (09:06→18:43)
[2017-01-19] MEDS: DOCUSATE 50 MG/5 ML, 10ML UDC PO SCH ×2 (09:07→21:00)
[2017-01-19] MEDS: QUETIAPINE 25MG TABLET PO SCH ×2 (09:07→22:17)
[2017-01-19] MEDS: SODIUM CHLORIDE FLUSH 10ML SYR IVF SCH ×2 (09:07→22:17)
[2017-01-19] MEDS: INSULIN DETEMIR 100 UNITS/ML, PEN SQ-INSULIN SCH ×2 (12:37→22:31)
[2017-01-19 14:02] VITALS: BP 93/57
[2017-01-19] MEDS ORDERED: WARFARIN 2.5 MG TABLET PO-COUM SCH (18:00)
[2017-01-19] MEDS ORDERED: ACETAMINOPHEN 650 MG SUPP PR PRN (19:30)
[2017-01-19] MEDS ORDERED: MAGNESIUM HYDROXIDE 8%, 30ML UDC PO PRN (19:30)
[2017-01-19] MEDS ORDERED: LABETALOL 5MG/ML, 20ML IVPush PRN (19:30)
[2017-01-19] MEDS ORDERED: ONDANSETRON 2MG/ML, 2ML IVPush PRN (19:30)
[2017-01-19] MEDS ORDERED: GLUCAGON 1 MG IM PRN (19:30)
[2017-01-19] MEDS ORDERED: ACETAMINOPHEN 650 MG/20.3 ML UDC NG PRN (19:30)
[2017-01-19] MEDS ORDERED: BISACODYL 10 MG SUPP PR PRN (19:30)
[2017-01-19 20:10] VITALS: BP 98/59
[2017-01-19] MEDS: ATORVASTATIN 40 MG TABLET PO SCH (22:17)
[2017-01-20 03:26] VITALS: BP 100/66
[2017-01-20] MEDS: INSULIN ASPART 100 UNITS/ML, PEN SQ-INSULIN SCH (05:00)
[2017-01-20] MEDS: PIPERACILLIN/TAZO/PMX 3.375GM 50 ML IV SCH ×4 (05:22→22:43)
[2017-01-20 05:39] LABS: HEMATOCRIT 32.2 % (39.2-51.8); HEMOGLOBIN 10.7 g/dL (13.7-18.0); WHITE BLOOD COUNT 9.9 x10^3/uL (3.4-10)
[2017-01-20 05:46] LABS: BLOOD UREA NITROGEN 16 mg/dL (7-18)
[2017-01-20 06:20] VITALS: BP 100/65
[2017-01-20] MEDS: CARVEDILOL 6.25 MG TABLET PO SCH ×2 (06:20→17:14)
[2017-01-20] MEDS: ALBUTEROL/IPRATROPIUM 2.5MG/0.5MG, 3 ML NPPB SCH ×4 (07:00→22:00)
[2017-01-20 08:52] VITALS: BP 100/68
[2017-01-20] MEDS: AMIODARONE 200 MG TABLET PO SCH (10:24)
[2017-01-20] MEDS: ASPIRIN 81 MG TABLET CHEW PO SCH (10:24)
[2017-01-20] MEDS: POTASSIUM CHLORIDE 20 MEQ PACKET PO SCH ×2 (10:24→17:14)
[2017-01-20] MEDS: LISINOPRIL 5 MG TABLET PO SCH (10:25)
[2017-01-20] MEDS: DOCUSATE 50 MG/5 ML, 10ML UDC PO SCH ×2 (10:25→21:00)
[2017-01-20] MEDS: QUETIAPINE 25MG TABLET PO SCH ×2 (10:25→22:42)
[2017-01-20] MEDS: FAMOTIDINE 20 MG TABLET PO SCH ×2 (10:25→22:42)
[2017-01-20] MEDS: SODIUM CHLORIDE FLUSH 10ML SYR IVF SCH ×2 (10:26→22:42)
[2017-01-20] MEDS: INSULIN DETEMIR 100 UNITS/ML, PEN SQ-INSULIN SCH (11:00)
[2017-01-20 12:21] VITALS: BP 97/62
[2017-01-20] MEDS ORDERED: WARFARIN 2.5 MG TABLET PO-COUM SCH (18:00)
[2017-01-20] MEDS ORDERED: WARFARIN 3 MG TABLET PO-COUM SCH (18:00)
[2017-01-20 20:03] VITALS: BP 96/62
[2017-01-20] MEDS: ATORVASTATIN 40 MG TABLET PO SCH (22:42)
[2017-01-21 02:38] VITALS: BP 102/68
[2017-01-21] MEDS: PIPERACILLIN/TAZO/PMX 3.375GM 50 ML IV SCH (05:17)
[2017-01-21] MEDS: CARVEDILOL 6.25 MG TABLET PO SCH ×2 (05:17→17:24)
[2017-01-21 05:34] LABS: HEMATOCRIT 32.4 % (39.2-51.8); HEMOGLOBIN 10.8 g/dL (13.7-18.0); WHITE BLOOD COUNT 9.3 x10^3/uL (3.4-10)
[2017-01-21 05:42] LABS: BLOOD UREA NITROGEN 14 mg/dL (7-18)
[2017-01-21] MEDS: ALBUTEROL/IPRATROPIUM 2.5MG/0.5MG, 3 ML NPPB SCH ×4 (06:50→19:15)
[2017-01-21 08:25] VITALS: BP 107/70
[2017-01-21] MEDS: FAMOTIDINE 20 MG TABLET PO SCH ×2 (08:56→20:49)
[2017-01-21] MEDS: AMIODARONE 200 MG TABLET PO SCH (08:57)
[2017-01-21] MEDS: LISINOPRIL 5 MG TABLET PO SCH (08:57)
[2017-01-21] MEDS: ASPIRIN 81 MG TABLET CHEW PO SCH (08:57)
[2017-01-21] MEDS: POTASSIUM CHLORIDE 20 MEQ PACKET PO SCH ×2 (08:58→17:25)
[2017-01-21] MEDS: QUETIAPINE 25MG TABLET PO SCH ×2 (08:58→20:49)
[2017-01-21] MEDS: SODIUM CHLORIDE FLUSH 10ML SYR IVF SCH ×2 (08:59→20:49)
[2017-01-21] MEDS: DOCUSATE 50 MG/5 ML, 10ML UDC PO SCH ×2 (08:59→20:49)
[2017-01-21 13:39] VITALS: BP 98/63
[2017-01-21] MEDS ORDERED: WARFARIN 3 MG TABLET PO-COUM ONE (18:00)
[2017-01-21 18:40] VITALS: BP 98/65
[2017-01-21] MEDS: ATORVASTATIN 40 MG TABLET PO SCH (20:49)
[2017-01-22 02:00] VITALS: BP 114/71
[2017-01-22 05:27] LABS: HEMATOCRIT 33.5 % (39.2-51.8); WHITE BLOOD COUNT 9.9 x10^3/uL (3.4-10)
[2017-01-22 05:51] LABS: BLOOD UREA NITROGEN 16 mg/dL (7-18)
[2017-01-22] MEDS: ALBUTEROL/IPRATROPIUM 2.5MG/0.5MG, 3 ML NPPB SCH ×4 (07:05→18:55)
[2017-01-22] MEDS: CARVEDILOL 6.25 MG TABLET PO SCH ×2 (07:58→17:19)
[2017-01-22 08:27] VITALS: BP 107/72
[2017-01-22] MEDS: POTASSIUM CHLORIDE 20 MEQ PACKET PO SCH ×2 (08:53→17:19)
[2017-01-22] MEDS: LISINOPRIL 5 MG TABLET PO SCH (08:53)
[2017-01-22] MEDS: FAMOTIDINE 20 MG TABLET PO SCH ×2 (08:53→21:00)
[2017-01-22] MEDS: QUETIAPINE 25MG TABLET PO SCH ×2 (08:53→20:59)
[2017-01-22] MEDS: AMIODARONE 200 MG TABLET PO SCH (08:54)
[2017-01-22] MEDS: DOCUSATE 50 MG/5 ML, 10ML UDC PO SCH ×2 (08:55→20:59)
[2017-01-22] MEDS: SODIUM CHLORIDE FLUSH 10ML SYR IVF SCH ×2 (08:55→20:59)
[2017-01-22] MEDS: ASPIRIN 81 MG TABLET CHEW PO SCH (09:00)
[2017-01-22 14:20] VITALS: BP 100/68
[2017-01-22] MEDS ORDERED: WARFARIN 5 MG TABLET PO-COUM ONE (18:00)
[2017-01-22] MEDS ORDERED: PNEUMOCOCCAL 23 VACCINE IM-VACC ONE (18:30)
[2017-01-22 19:56] VITALS: BP 101/67
[2017-01-22] MEDS: ATORVASTATIN 40 MG TABLET PO SCH (21:00)
[2017-01-23 03:15] VITALS: BP 106/65
[2017-01-23 04:43] LABS: HEMATOCRIT 36.5 % (39.2-51.8); HEMOGLOBIN 12.1 g/dL (13.7-18.0)
[2017-01-23 04:48] LABS: BLOOD UREA NITROGEN 15 mg/dL (7-18)
[2017-01-23] MEDS: CARVEDILOL 6.25 MG TABLET PO SCH ×2 (05:39→17:37)
[2017-01-23] MEDS: ALBUTEROL/IPRATROPIUM 2.5MG/0.5MG, 3 ML NPPB SCH ×4 (07:40→18:30)
[2017-01-23] MEDS: DOCUSATE 50 MG/5 ML, 10ML UDC PO SCH ×2 (09:00→21:00)
[2017-01-23] MEDS: ASPIRIN 81 MG TABLET CHEW PO SCH (09:44)
[2017-01-23] MEDS: AMIODARONE 200 MG TABLET PO SCH (09:44)
[2017-01-23] MEDS: LISINOPRIL 5 MG TABLET PO SCH (09:44)
[2017-01-23] MEDS: QUETIAPINE 25MG TABLET PO SCH ×2 (09:44→20:42)
[2017-01-23] MEDS: FAMOTIDINE 20 MG TABLET PO SCH ×2 (09:44→20:41)
[2017-01-23] MEDS: POTASSIUM CHLORIDE 20 MEQ PACKET PO SCH ×2 (09:45→17:37)
[2017-01-23] MEDS: SODIUM CHLORIDE FLUSH 10ML SYR IVF SCH ×2 (09:45→20:42)
[2017-01-23 09:49] VITALS: BP 107/72
[2017-01-23] MEDS ORDERED: WARFARIN 7.5 MG TABLET PO-COUM ONE (18:00)
[2017-01-23 19:00] VITALS: BP 92/63
[2017-01-23] MEDS: ATORVASTATIN 40 MG TABLET PO SCH (20:42)
[2017-01-24 03:43] VITALS: BP 104/68
[2017-01-24 05:34] LABS: HEMATOCRIT 32.8 % (39.2-51.8); HEMOGLOBIN 10.9 g/dL (13.7-18.0); WHITE BLOOD COUNT 10.6 x10^3/uL (3.4-10)
[2017-01-24 05:56] LABS: BLOOD UREA NITROGEN 19 mg/dL (7-18)
[2017-01-24] MEDS: CARVEDILOL 6.25 MG TABLET PO SCH ×2 (06:12→17:43)
[2017-01-24 07:51] VITALS: BP 94/65
[2017-01-24] MEDS: DOCUSATE 50 MG/5 ML, 10ML UDC PO SCH (09:00)
[2017-01-24] MEDS: LISINOPRIL 5 MG TABLET PO SCH (09:00)
[2017-01-24] MEDS: FAMOTIDINE 20 MG TABLET PO SCH ×2 (09:13→20:22)
[2017-01-24] MEDS: POTASSIUM CHLORIDE 20 MEQ PACKET PO SCH ×2 (09:13→17:44)
[2017-01-24] MEDS: AMIODARONE 200 MG TABLET PO SCH (09:13)
[2017-01-24] MEDS: ASPIRIN 81 MG TABLET CHEW PO SCH (09:14)
[2017-01-24] MEDS: QUETIAPINE 25MG TABLET PO SCH ×2 (09:14→20:22)
[2017-01-24 13:00] VITALS: BP 99/67
[2017-01-24] MEDS: SODIUM CHLORIDE FLUSH 10ML SYR IVF SCH (15:54)
[2017-01-24] MEDS ORDERED: WARFARIN 5 MG TABLET PO-COUM SCH (18:00)
[2017-01-24 19:41] VITALS: BP 94/67
[2017-01-24] MEDS: ATORVASTATIN 40 MG TABLET PO SCH (20:22)
[2017-01-25 01:12] VITALS: BP 109/70
[2017-01-25 05:08] LABS: HEMATOCRIT 36.2 % (39.2-51.8); HEMOGLOBIN 11.9 g/dL (13.7-18.0); WHITE BLOOD COUNT 9.9 x10^3/uL (3.4-10)
[2017-01-25 05:14] LABS: BLOOD UREA NITROGEN 19 mg/dL (7-18)
[2017-01-25] MEDS: SODIUM CHLORIDE FLUSH 10ML SYR IVF SCH ×3 (06:16→21:00)
[2017-01-25] MEDS: CARVEDILOL 6.25 MG TABLET PO SCH ×2 (06:16→17:55)
[2017-01-25 06:57] VITALS: BP 129/88
[2017-01-25] MEDS: AMIODARONE 200 MG TABLET PO SCH (08:22)
[2017-01-25] MEDS: LISINOPRIL 5 MG TABLET PO SCH (08:22)
[2017-01-25] MEDS: ASPIRIN 81 MG TABLET CHEW PO SCH (08:22)
[2017-01-25] MEDS: DOCUSATE 50 MG/5 ML, 10ML UDC PO SCH (08:22)
[2017-01-25] MEDS: POTASSIUM CHLORIDE 20 MEQ PACKET PO SCH ×2 (08:23→17:57)
[2017-01-25] MEDS: QUETIAPINE 25MG TABLET PO SCH ×2 (08:23→21:21)
[2017-01-25] MEDS: FAMOTIDINE 20 MG TABLET PO SCH ×2 (08:23→21:21)
[2017-01-25 13:57] VITALS: BP 97/64
[2017-01-25] MEDS ORDERED: WARFARIN 3 MG TABLET PO-COUM SCH (18:00)
[2017-01-25 19:21] VITALS: BP 94/66
[2017-01-25] MEDS: ATORVASTATIN 40 MG TABLET PO SCH (21:21)
[2017-01-26 04:00] VITALS: BP 101/68
[2017-01-26 06:06] LABS: HEMATOCRIT 36.2 % (39.2-51.8); HEMOGLOBIN 11.5 g/dL (13.7-18.0); WHITE BLOOD COUNT 8.8 x10^3/uL (3.4-10)
[2017-01-26 06:45] LABS: BLOOD UREA NITROGEN 20 mg/dL (7-18)
[2017-01-26 08:00] VITALS: BP 100/70
[2017-01-26] MEDS: SODIUM CHLORIDE FLUSH 10ML SYR IVF SCH ×2 (09:00→19:00)
[2017-01-26] MEDS: DOCUSATE 50 MG/5 ML, 10ML UDC PO SCH (09:00)
[2017-01-26] MEDS: QUETIAPINE 25MG TABLET PO SCH ×2 (09:44→21:38)
[2017-01-26] MEDS: POTASSIUM CHLORIDE 20 MEQ PACKET PO SCH ×2 (09:44→17:56)
[2017-01-26] MEDS: CARVEDILOL 6.25 MG TABLET PO SCH ×2 (09:44→17:57)
[2017-01-26] MEDS: AMIODARONE 200 MG TABLET PO SCH (09:44)
[2017-01-26] MEDS: LISINOPRIL 5 MG TABLET PO SCH (09:44)
[2017-01-26] MEDS: ASPIRIN 81 MG TABLET CHEW PO SCH (09:44)
[2017-01-26] MEDS: FAMOTIDINE 20 MG TABLET PO SCH ×2 (09:44→21:38)
[2017-01-26 13:16] VITALS: BP 96/67
[2017-01-26] MEDS ORDERED: WARFARIN 7.5 MG TABLET PO-COUM SCH (18:00)
[2017-01-26] MEDS ORDERED: DEXTROSE 50%, 50ML SYRINGE IVPush PRN (19:00)
[2017-01-26] MEDS ORDERED: ACETAMINOPHEN 650 MG SUPP PR PRN (19:00)
[2017-01-26] MEDS ORDERED: SODIUM CHLORIDE 0.9% 1,000 ML IV PRN (19:00)
[2017-01-26] MEDS ORDERED: LABETALOL 5MG/ML, 20ML IVPush PRN (19:00)
[2017-01-26] MEDS ORDERED: ONDANSETRON 2MG/ML, 2ML IVPush PRN (19:00)
[2017-01-26] MEDS ORDERED: GLUCAGON 1 MG IM PRN (19:00)
[2017-01-26] MEDS ORDERED: PHARMACY MAY ADJ FOR RENAL FX MC SCH (19:00)
[2017-01-26] MEDS ORDERED: ACETAMINOPHEN 650 MG/20.3 ML UDC NG PRN (19:00)
[2017-01-26] MEDS ORDERED: BISACODYL 10 MG SUPP PR PRN (19:00)
[2017-01-26] MEDS: ATORVASTATIN 40 MG TABLET PO SCH (21:38)
[2017-01-26 21:43] VITALS: BP 94/66
[2017-01-27 02:00] VITALS: BP 96/56
[2017-01-27 05:47] LABS: HEMATOCRIT 33.6 % (39.2-51.8); WHITE BLOOD COUNT 8.8 x10^3/uL (3.4-10)
[2017-01-27 06:18] LABS: BLOOD UREA NITROGEN 21 mg/dL (7-18)
[2017-01-27 07:52] VITALS: BP 102/64
[2017-01-27] MEDS: QUETIAPINE 25MG TABLET PO SCH ×2 (08:02→21:08)
[2017-01-27] MEDS: POTASSIUM CHLORIDE 20 MEQ PACKET PO SCH ×2 (08:03→17:38)
[2017-01-27] MEDS: AMIODARONE 200 MG TABLET PO SCH (08:03)
[2017-01-27] MEDS: LISINOPRIL 5 MG TABLET PO SCH (08:03)
[2017-01-27] MEDS: FAMOTIDINE 20 MG TABLET PO SCH ×2 (08:03→21:09)
[2017-01-27] MEDS: SODIUM CHLORIDE FLUSH 10ML SYR IVF SCH ×2 (08:04→21:10)
[2017-01-27] MEDS: DOCUSATE 50 MG/5 ML, 10ML UDC PO SCH (08:04)
[2017-01-27] MEDS: ASPIRIN 81 MG TABLET CHEW PO SCH (08:04)
[2017-01-27] MEDS: CARVEDILOL 6.25 MG TABLET PO SCH ×2 (08:04→17:38)
[2017-01-27 15:17] VITALS: BP_SYST 97; BP_SYST 99; BP_DIAS 64
[2017-01-27] MEDS ORDERED: WARFARIN 3 MG TABLET PO-COUM SCH (18:00)
[2017-01-27 19:28] VITALS: BP 98/67
[2017-01-27] MEDS: ATORVASTATIN 40 MG TABLET PO SCH (21:08)
[2017-01-28 02:00] VITALS: BP 95/63
[2017-01-28 05:10] LABS: HEMATOCRIT 35.9 % (39.2-51.8); HEMOGLOBIN 11.8 g/dL (13.7-18.0); WHITE BLOOD COUNT 8.6 x10^3/uL (3.4-10)
[2017-01-28 05:29] LABS: BLOOD UREA NITROGEN 21 mg/dL (7-18)
[2017-01-28] MEDS: CARVEDILOL 6.25 MG TABLET PO SCH ×2 (05:48→17:29)
[2017-01-28] MEDS: SODIUM CHLORIDE FLUSH 10ML SYR IVF SCH ×2 (05:48→21:08)
[2017-01-28 06:43] VITALS: BP 105/69
[2017-01-28] MEDS: POTASSIUM CHLORIDE 20 MEQ PACKET PO SCH ×2 (08:19→17:29)
[2017-01-28] MEDS: LISINOPRIL 5 MG TABLET PO SCH (08:19)
[2017-01-28] MEDS: FAMOTIDINE 20 MG TABLET PO SCH ×2 (08:19→21:08)
[2017-01-28] MEDS: QUETIAPINE 25MG TABLET PO SCH ×2 (08:19→21:08)
[2017-01-28] MEDS: AMIODARONE 200 MG TABLET PO SCH (08:20)
[2017-01-28] MEDS: ASPIRIN 81 MG TABLET CHEW PO SCH (08:20)
[2017-01-28] MEDS: DOCUSATE 50 MG/5 ML, 10ML UDC PO SCH (08:20)
[2017-01-28 12:30] VITALS: BP 109/60
[2017-01-28] MEDS ORDERED: WARFARIN 7.5 MG TABLET PO-COUM ONE (18:00)
[2017-01-28 19:12] VITALS: BP 108/73
[2017-01-28] MEDS: ATORVASTATIN 40 MG TABLET PO SCH (21:08)
[2017-01-29 01:32] VITALS: BP 98/59
[2017-01-29 05:55] LABS: HEMATOCRIT 36.5 % (39.2-51.8); HEMOGLOBIN 12.1 g/dL (13.7-18.0); WHITE BLOOD COUNT 8.9 x10^3/uL (3.4-10)
[2017-01-29 06:11] LABS: BLOOD UREA NITROGEN 18 mg/dL (7-18)
[2017-01-29 06:40] VITALS: BP 97/63
[2017-01-29] MEDS: FAMOTIDINE 20 MG TABLET PO SCH (08:43)
[2017-01-29] MEDS: SODIUM CHLORIDE FLUSH 10ML SYR IVF SCH (08:43)
[2017-01-29] MEDS: QUETIAPINE 25MG TABLET PO SCH (08:43)
[2017-01-29] MEDS: AMIODARONE 200 MG TABLET PO SCH (08:44)
[2017-01-29] MEDS: DOCUSATE 50 MG/5 ML, 10ML UDC PO SCH (08:44)
[2017-01-29] MEDS: ASPIRIN 81 MG TABLET CHEW PO SCH (08:44)
[2017-01-29] MEDS: POTASSIUM CHLORIDE 20 MEQ PACKET PO SCH ×2 (08:44→17:36)
[2017-01-29] MEDS: LISINOPRIL 5 MG TABLET PO SCH (08:45)
[2017-01-29] MEDS: CARVEDILOL 6.25 MG TABLET PO SCH ×2 (08:45→17:36)
[2017-01-29 12:34] VITALS: BP 94/61
[2017-01-29] MEDS ORDERED: WARFARIN 3 MG TABLET PO-COUM ONE (18:00)
== END 2017-01-29 18:35 | DRG 228 ==
LOC: ED 03:30 → SUATTDRO 10:40 → EDIP 11:55 → 5SO 13:52 → CCU 01-03 17:26 → CSU 01-06 13:31 → CCU 01-08 01:15 → 5SO 01-16 15:01
PROVIDERS: ADMIT Internal Medicine; ATTEND Internal Medicine
PROC: 0T9B70Z Drainage of Bladder with Drainage Device, Via Natural or Artificial Opening (ICD-10-PCS; 2017-01-05)
PROC: 02UM0JZ Supplement Ventricular Septum with Synthetic Substitute, Open Approach (ICD-10-PCS; 2017-01-06)
PROC: 4A023N8 Measurement of Cardiac Sampling and Pressure, Bilateral, Percutaneous Approach (ICD-10-PCS; 2017-01-06)
PROC: 5A1221Z Performance of Cardiac Output, Continuous (ICD-10-PCS; 2017-01-06)
PROC: B2111ZZ Fluoroscopy of Multiple Coronary Arteries using Low Osmolar Contrast (ICD-10-PCS; 2017-01-06)
PROC: B2151ZZ Fluoroscopy of Left Heart using Low Osmolar Contrast (ICD-10-PCS; 2017-01-06)
PROC: B246ZZ4 Ultrasonography of Right and Left Heart, Transesophageal (ICD-10-PCS; 2017-01-06)
PROC: 02HV33Z Insertion of Infusion Device into Superior Vena Cava, Percutaneous Approach (ICD-10-PCS; 2017-01-06)
PROC: B548ZZA Ultrasonography of Superior Vena Cava, Guidance (ICD-10-PCS; 2017-01-06)
PROC: 02100Z9 Bypass Coronary Artery, One Artery from Left Internal Mammary, Open Approach (ICD-10-PCS; principal; 2017-01-06 12:30)
DX: I21.4 Non-ST elevation (NSTEMI) myocardial infarction (principal); N17.0 Acute kidney failure with tubular necrosis; R57.0 Cardiogenic shock; J96.21 Acute and chronic respiratory failure with hypoxia; G93.40 Encephalopathy, unspecified; I50.41 Acute combined systolic (congestive) and diastolic (congestive) heart failure; D68.9 Coagulation defect, unspecified; J15.1 Pneumonia due to Pseudomonas; K86.1 Other chronic pancreatitis; J14 Pneumonia due to Hemophilus influenzae; I25.3 Aneurysm of heart; I13.0 Hypertensive heart and chronic kidney disease with heart failure and stage 1 through stage 4 chronic kidney disease, or unspecified chronic kidney disease; Q21.0 Ventricular septal defect; J44.1 Chronic obstructive pulmonary disease with (acute) exacerbation; N39.0 Urinary tract infection, site not specified; J98.11 Atelectasis; E87.0 Hyperosmolality and hypernatremia; I48.92 Unspecified atrial flutter; I97.89 Other postprocedural complications and disorders of the circulatory system, not elsewhere classified; J44.0 Chronic obstructive pulmonary disease with (acute) lower respiratory infection; J93.83 Other pneumothorax; Z99.11 Dependence on respirator [ventilator] status; E78.5 Hyperlipidemia, unspecified; F17.210 Nicotine dependence, cigarettes, uncomplicated; I07.1 Rheumatic tricuspid insufficiency; I25.10 Atherosclerotic heart disease of native coronary artery without angina pectoris; I25.2 Old myocardial infarction; I48.0 Paroxysmal atrial fibrillation; I65.23 Occlusion and stenosis of bilateral carotid arteries; N18.9 Chronic kidney disease, unspecified; N20.0 Calculus of kidney; Z75.1 Person awaiting admission to adequate facility elsewhere; Z79.82 Long term (current) use of aspirin; Z79.899 Other long term (current) drug therapy; Z80.0 Family history of malignant neoplasm of digestive organs
CPT/HCPCS: 36415; 36569; 36600; 71010; 71275; 74230; 76937; 77001; 80047; 80048; 80053; 80061; 81001; 82040; 82330; 82800; 82803; 82810; 82947; 82962; 83036; 83735; 83880; 84132; 84295; 84443; 84478; 84484; 85014; 85018; 85025; 85049; 85347; 85379; 85520; 85610; 85730; 86850; 86900; 86923; 87040; 87070; 87077; 87081; 87086; 87186; 87205; 87324; 88304; 90732; 93005; 93306; 93312; 93321; 93325; 93460; 93880; 93970; 94002; 94003; 94150; 94640; 96374; 96376; 99156; 99157; C1760; C1894; J0696; J0697; J1644; J1650; J1815; J1940; J2185; J2250; J2543; J2704; J2720; J3010; J3370; J3475; J3480; J3490; J7070; J7120; J7620; P9045; Q9967; C1751; C1768; C1887; C9113; J0171; J0282; J2060; J2270; J2370; J2440; J7040; J7050; J7060; J7512; S0028

== ENCOUNTER 2017-12-26 15:29 | Emergency (ER) | payer BC, MEDICARE ==
[~2017-12-26] VITALS: Ht 185.4 cm; Wt 94.5 kg
[~2017-12-26 15:29] MED LIST: AMIO200T42 PO; ASPI-515 PO; ATOR40TA78 PO; CARV6.2512 PO; DOCU50LI12 PO; FAMO20TA7 PO; INSU100I18 SQ-INSULIN; INSU100I28 SQ-INSULIN; IPRA3AMP30 NPPB; LISI5TAB7 PO; POTA20PA25 PO; QUET25TA PO; WARF5TAB PO
[2017-12-26 15:36] VITALS: BP 152/76
== END 2017-12-26 17:03 | disposition home or self-care (01) ==
LOC: ED 16:04
DX: M54.12 Radiculopathy, cervical region (principal); I25.2 Old myocardial infarction; I10 Essential (primary) hypertension; E78.5 Hyperlipidemia, unspecified
CPT/HCPCS: 99281

== ENCOUNTER → 2018-03-10 | Outpatient (CLI) | payer BC, MEDICARE | END | disposition home or self-care (01) | LOC: CARD 14:52 | PROVIDERS: ATTEND Internal Medicine Critical Care Medicine | DX: J40 Bronchitis, not specified as acute or chronic (principal); J44.9 Chronic obstructive pulmonary disease, unspecified; I25.10 Atherosclerotic heart disease of native coronary artery without angina pectoris; Q21.0 Ventricular septal defect | CPT/HCPCS: 94060; 94726; 94729 ==